=== PATIENT | female | born 1945 | race Caucasian/White ===

== ENCOUNTER 2017-11-14 17:26 | Emergency (ER) | payer MEDICARE, OTHER ==
[2017-11-14 18:05] LABS: BASOPHILS % (AUTO) 0.5 % (0.0-5.0); EOSINOPHILS % (AUTO) 0.8 % (0.0-8.0); HEMATOCRIT 36.1 % (36-48); LYMPHOCYTES % (AUTO) 19.7 % (21.0-51.0); MEAN CORPUSCULAR HEMOGLOBIN 31.2 pg (27.0-33.0); MEAN CORPUSCULAR HGB CONC 35.5 g/dL (32.0-36.0); MONOCYTES % (AUTO) 7.9 % (3.0-13.0); NEUTROPHILS % (AUTO) 71.1 % (40.0-77.0); PLATELET COUNT (AUTO) 304 K/uL (130-400); RED CELL DISTRIBUTION WIDTH 12.2 % (11.0-15.5)
[2017-11-14] MEDS ORDERED: ORPHENADRINE CITRATE 30 MG/ML ML ONE (18:05)
[2017-11-14 18:16] LABS: CREATININE 0.8 mg/dL (0.5-1.5); POTASSIUM 4.5 mmol/L (3.5-5.1)
[2017-11-14 18:20] LABS: INR 0.97 (0.85-1.15); PARTIAL THROMBOPLASTIN TIME 27.5 SEC (26.3-35.5); PROTHROMBIN TIME 10.2 SEC (9.6-11.6)
[2017-11-14 18:29] LABS: ALBUMIN 3.6 g/dL (3.5-5.0); BILIRUBIN,TOTAL 0.4 mg/dL (0.2-1.0); CREATINE KINASE MB 0.6 ng/mL (0.5-3.6); TOTAL PROTEIN, SERUM 7.5 g/dL (6.0-8.3)
[2017-11-14] MEDS ORDERED: KETOROLAC TROMETHAMINE 15MG/ML ONE (19:19)
== END 2017-11-14 19:33 | disposition home or self-care (01) ==
LOC: EDH 17:26
DX: M62.838 Other muscle spasm (principal); M54.2 Cervicalgia; R21 Rash and other nonspecific skin eruption; K21.9 Gastro-esophageal reflux disease without esophagitis; I10 Essential (primary) hypertension; Z88.6 Allergy status to analgesic agent
CPT/HCPCS: 36415; 80053; 82550; 82553; 84484; 85025; 85610; 85730; 93005; 96374; 96375; 99285; J1885; J2360

== ENCOUNTER 2017-11-17 10:59 | Emergency (ER) | payer MEDICARE ==
[2017-11-17] MEDS ORDERED: LIDOCAINE HCL 2% VISCOUS 15 ML UDCUP ONE (11:56)
[2017-11-17] MEDS ORDERED: MAG HYDROX/AL HYDROX/SIMETH ES 30 ML SUSP UDCUP ONE (11:56)
[2017-11-17] MEDS ORDERED: ONDANSETRON ODT 4 MG TAB ONE (11:56)
[2017-11-17] MEDS ORDERED: TRAMADOL HCL 50 MG TABLET ONE (13:03)
[2017-11-17 14:45] LABS: BASOPHILS % (AUTO) 0.7 % (0.0-5.0); CREATININE 0.9 mg/dL (0.5-1.5); EOSINOPHILS % (AUTO) 0.8 % (0.0-8.0); LYMPHOCYTES % (AUTO) 20.5 % (21.0-51.0); MEAN CORPUSCULAR HEMOGLOBIN 31.6 pg (27.0-33.0); MEAN CORPUSCULAR HGB CONC 35.6 g/dL (32.0-36.0); MEAN CORPUSCULAR VOLUME 88.7 fL (79-99); MONOCYTES % (AUTO) 7.8 % (3.0-13.0); NEUTROPHILS % (AUTO) 70.2 % (40.0-77.0); PLATELET COUNT (AUTO) 354 K/uL (130-400); POTASSIUM 3.9 mmol/L (3.5-5.1); RED BLOOD CELL COUNT(AUTO) 4.06 MIL/uL (4.00-5.50); RED CELL DISTRIBUTION WIDTH 12.2 % (11.0-15.5); WHITE BLOOD COUNT (AUTO) 10.2 K/uL (4.8-10.8)
[2017-11-17 15:00] LABS: ALBUMIN 3.7 g/dL (3.5-5.0); BILIRUBIN,TOTAL 0.4 mg/dL (0.2-1.0); CREATINE KINASE MB 0.9 ng/mL (0.5-3.6); TOTAL PROTEIN, SERUM 8.3 g/dL (6.0-8.3)
== END 2017-11-17 16:53 | disposition home or self-care (01) ==
LOC: EDH 10:59
DX: K29.70 Gastritis, unspecified, without bleeding (principal)
CPT/HCPCS: 36415; 71046; 74176; 76705; 80053; 82150; 82550; 82553; 83690; 84484; 85025; 93005

== ENCOUNTER 2019-01-29 10:56 | Observation (INO) | payer MEDICARE ==
[~2019-01-29] VITALS: Ht 154.9 cm; Wt 57.6 kg
[2019-01-29 11:24] LABS: BASOPHILS % (AUTO) 0.8 % (0.0-5.0); EOSINOPHILS % (AUTO) 2.3 % (0.0-8.0); HEMATOCRIT 38.6 % (36-48); LYMPHOCYTES % (AUTO) 34.2 % (21.0-51.0); MEAN CORPUSCULAR HEMOGLOBIN 31.6 pg (27.0-33.0); MEAN CORPUSCULAR HGB CONC 34.8 g/dL (32.0-36.0); MEAN CORPUSCULAR VOLUME 90.9 fL (79-99); MONOCYTES % (AUTO) 8.5 % (3.0-13.0); NEUTROPHILS % (AUTO) 54.2 % (40.0-77.0); NUCLEATED RED BLOOD CELLS 0.1 % (0.0-0.19); PLATELET COUNT (AUTO) 328 K/uL (130-400); RED BLOOD CELL COUNT(AUTO) 4.25 MIL/uL (4.00-5.50); RED CELL DISTRIBUTION WIDTH 12.2 % (11.0-15.5); WHITE BLOOD COUNT (AUTO) 5.9 K/uL (4.8-10.8)
[2019-01-29 11:32] LABS: POTASSIUM 4.6 mmol/L (3.5-5.1)
[2019-01-29 11:37] LABS: BILIRUBIN,TOTAL 0.3 mg/dL (0.2-1.0); TOTAL PROTEIN, SERUM 7.7 g/dL (6.0-8.3)
[2019-01-29] MEDS ORDERED: IOHEXOL-350 75 ML VIAL IV ONE (11:45)
[2019-01-29 11:57] LABS: APPEARANCE,URINE Clear (CLEAR); BILIRUBIN,URINE Negative (NEGATIVE); COLOR,URINE Yellow (YELLOW); GLUCOSE, URINE (UA) Negative (NEGATIVE); KETONES,URINE Negative (NEGATIVE); LEUKOCYTE ESTERASE ,URINE Trace (NEGATIVE); NITRATE,URINE Negative (NEGATIVE); OCCULT BLOOD,URINE Negative (NEGATIVE); PROTEIN,URINE Negative (NEGATIVE); UROBILINOGEN,URINE 0.2 mg/dL (0.2-1.0)
[2019-01-29 12:11] LABS: BACTERIA,URINE Rare /HPF (None Seen); RBC,URINE 0-1 /HPF (0-1); SQUAMOUS EPITHELIAL CELL,UR Rare /HPF (0-2); WBC,URINE 0-1 /HPF (0-1)
[2019-01-29] MEDS ORDERED: METRONIDAZOLE 500MG/100ML BAG 100 ML ONE (13:55)
[2019-01-29] MEDS ORDERED: LIDOCAINE HCL 2% VISCOUS 15 ML UDCUP ONE (13:56)
[2019-01-29] MEDS ORDERED: CEFEPIME HCL 1 GM VIAL ONE (15:15)
[2019-01-29 17:15] VITALS: BP 145/64
[2019-01-29] MEDS ORDERED: HYDROMORPHONE HCL 0.5 MG/0.5 ML ML IVP PRN (18:00)
[2019-01-29] MEDS ORDERED: ONDANSETRON HCL 4 MG/2 ML VIAL IVP PRN (18:00)
--- NOTE | 2019-01-29 19:20 | NUR ---
MD BONNER. MD BRAVO IN PT ROOM AT THIS TIME. UPDATED PT AND PT SPOUSE ON POC. PT AND SPOUSE WERE ABLE TO ASK QUESTIONS AND VERBALIZE UNDERSTANDING. NEW ORDERS RECEIVED, REFER TO EMR. Addendum: 01/30/19 at 0154 by JOSLYN AU RN Amended: Links added.
[2019-01-29 20:00] VITALS: BP 138/66
[2019-01-29] MEDS ORDERED: MAGNESIUM CITRATE 296 ML SOLUTION PO ONE ×2 (20:00→22:00)
[2019-01-29] MEDS: DEXTROSE 5 %-0.45 % NACL 1,000 ML IV SCH (20:15)
[2019-01-29] MEDS ORDERED: LOSA50TA64 PO (20:19)
[2019-01-29] MEDS ORDERED: METH20TA45 PO (20:19)
[2019-01-29] MEDS ORDERED: OMEP40CA37 PO (20:19)
[2019-01-29] MEDS ORDERED: LEVO75TA10 PO (20:19)
[2019-01-29] MEDS ORDERED: ACET-66 PO (20:20)
[2019-01-29] MEDS ORDERED: CLON0.5T12 PO (20:20)
[2019-01-29] MEDS ORDERED: BUPR100T13 PO (20:20)
[2019-01-29] MEDS ORDERED: ACETAMINOPHEN EXTRA STRENGTH 500 MG TABLET ONE (20:26)
[2019-01-29] MEDS ORDERED: ACETAMINOPHEN EXTRA STRENGTH 500 MG TABLET PO PRN (20:30)
[2019-01-29] MEDS ORDERED: CEFEPIME HCL 1 GM VIAL IVP SCH (22:00)
[2019-01-29] MEDS ORDERED: METRONIDAZOLE 500MG/100ML BAG 100 ML IVPB SCH (22:00)
[2019-01-29 23:19] VITALS: BP 118/54
--- NOTE | 2019-01-29 23:30 | NUR ---
REFUSING MED. PT REFUSING SECOND DOSE OF MAG CITRATE AT THIS TIME. C/O NAUSEA/VOMITING POST FIRST MAG CITRATE ADMINISTRATION PER MD ORDER. PT IS REFUSING PRN NAUSEA MEDICATION, ZOFRAN AT THIS TIME. PT ENCOURAGED TO TAKE PRN MEDICATION, BUT PT CONTINUES TO STATE "I WILL FEEL BETTER EVENTUALLY, I CAN'T TAKE A LOT OF MEDICATIONS THEY MESS UP MY STOMACH". WILL CONTINUE TO MONITOR.
--- NOTE | 2019-01-30 02:00 | NUR ---
ENEMA ADMINISTRATION. PER MD ORDER ENEMA ADMINISTERED. PT TOLERATED WELL, WAS ABLE TO HAVE BOWEL MOVEMENT AFTER ADMINISTRATION.
[2019-01-30 03:20] VITALS: BP 136/67
[2019-01-30 04:02] LABS: HEMATOCRIT 39.7 % (36-48); MEAN CORPUSCULAR HEMOGLOBIN 30.8 pg (27.0-33.0); MEAN CORPUSCULAR HGB CONC 34.3 g/dL (32.0-36.0); MEAN CORPUSCULAR VOLUME 89.7 fL (79-99); PLATELET COUNT (AUTO) 395 K/uL (130-400); RED BLOOD CELL COUNT(AUTO) 4.43 MIL/uL (4.00-5.50); RED CELL DISTRIBUTION WIDTH 12.1 % (11.0-15.5); WHITE BLOOD COUNT (AUTO) 11.9 K/uL (4.8-10.8)
[2019-01-30 04:21] LABS: MAGNESIUM 2.6 mg/dL (1.80-2.40); PHOSPHORUS 3.9 mg/dL (2.5-4.9); POTASSIUM 4.3 mmol/L (3.5-5.1)
[2019-01-30] MEDS: DEXTROSE 5 %-0.45 % NACL 1,000 ML IV SCH ×2 (06:40→15:07)
[2019-01-30 07:44] VITALS: BP 152/74
[2019-01-30 11:12] VITALS: BP 159/71
[2019-01-30] MEDS ORDERED: METOCLOPRAMIDE 10 MG/2 ML VIAL IVP PRN (11:30)
--- NOTE | 2019-01-30 13:20 | NUR ---
Report called to [facility] Nurse Gautam Campbell RN. Addendum: 01/30/19 at 1827 by ZAID MCCLURE RN RN please disregard above, written on wrong pt.
--- NOTE | 2019-01-30 14:00 | NUR ---
Soap suds enema per MD order. Pt escorted to rest room after with good results.
[2019-01-30 16:09] VITALS: BP 144/54
[2019-01-30] MEDS ORDERED: ACETAMINOPHEN EXTRA STRENGTH 500 MG TABLET PO PRN (16:30)
--- NOTE | 2019-01-30 17:45 | NUR ---
Discharge instructions completed in the room with pt at 1630. Emphasis on dx, sx, s/s to monitor for, and when to seek emergency care vs dial 911. Post op teaching regarding Dr. Gabriel' orders for NWB status on RLE, up with walker as instructed and as tolerated, keep splint clean, dry, intact, keep elevated when seated or in bed. PT is to call on next business day to schedule an appointment with Dr. Gabriel' office, to be seen on 02/08/19. All questions addressed. As previously noted, pt's rx for norco and asa were already taken to pharmacy by Dr. Gabriel and will be delivered on Friday; pt and MD discussed this and agreed it is the best course of action at present as he in unable to pick it up on his own. PIV removed, tip intact. Dressed with sterile 2x2 and band aid after hemostasis. Pt given hospital walker on loan until his personal one is delivered by [employer]. Pt wheeled to front lobby by [facility] staff at present for discharge home via taxi as arranged by pt. Pt in stable condition at time of discharge. Addendum: 01/30/19 at 1826 by ZAID MCCLURE RN RN please disregard above, written on incorrect pt
--- NOTE | 2019-01-30 18:03 | NUR ---
cm note pt resides at home with spouse, independent with ambulation and adls. no dme. dc plan is back to same home setting at al. no dc needs. Addendum: 01/30/19 at 1804 by FENG WILLIS CM Amended: Links added.
[2019-01-30 19:21] VITALS: BP 117/69
--- NOTE | 2019-01-30 22:30 | NUR ---
ENEMA ADMINISTRATION PER MD ORDER ENEMA ADMINISTERED. PT TOLERATED WELL, WAS ABLE TO HAVE BOWEL MOVEMENT AFTER ADMINISTRATION.
[2019-01-30 23:24] VITALS: BP 145/57
[2019-01-31 03:20] VITALS: BP 125/46
[2019-01-31 04:55] LABS: BASOPHILS % (AUTO) 0.4 % (0.0-5.0); EOSINOPHILS % (AUTO) 1.4 % (0.0-8.0); HEMATOCRIT 33.9 % (36-48); LYMPHOCYTES % (AUTO) 32.3 % (21.0-51.0); MEAN CORPUSCULAR HEMOGLOBIN 32.2 pg (27.0-33.0); MEAN CORPUSCULAR HGB CONC 35.4 g/dL (32.0-36.0); MEAN CORPUSCULAR VOLUME 91.1 fL (79-99); MONOCYTES % (AUTO) 7.6 % (3.0-13.0); NEUTROPHILS % (AUTO) 58.3 % (40.0-77.0); PLATELET COUNT (AUTO) 291 K/uL (130-400); RED BLOOD CELL COUNT(AUTO) 3.72 MIL/uL (4.00-5.50); RED CELL DISTRIBUTION WIDTH 11.9 % (11.0-15.5)
[2019-01-31 08:04] VITALS: BP 121/44
[2019-01-31 11:15] VITALS: BP 125/45
[2019-01-31] MEDS ORDERED: LACT10SO9 PO (13:15)
[2019-01-31] MEDS ORDERED: DOCU-116 PO (13:15)
[2019-01-31] MEDS ORDERED: PSYL1PAC11 PO (13:15)
--- NOTE | 2019-01-31 15:11 | NUR ---
Discharge instructions completed in the room with pt and at the side. Emphasis on dx, s/s to monitor for, when to seek emergency care vs dial 911. Pt already has a follow up appt with PCP tomorrow, encouraged her to keep it. As per MD orders, pt is to follow a full liquid diet x 1 week, then advance as tolerated. Written rx given to pt for lactulose, metamucil, colace. Discussed purpose, route, frequency, and duration of treatment, as well as side effects and adverse effects. All questions addressed. PIV removed, tip intact. Dressed with sterile 2x2 and band aid after hemostasis. Pt wheeled to front lobby by [facility] staff for transport home via private car. Pt in stable condition at time of discharge.
== END 2019-01-31 15:11 | disposition home or self-care (01) ==
LOC: EDH 10:56 → EDHIP 13:04 → 4BH 17:00
PROVIDERS: ADMIT Internal Medicine Critical Care Medicine; ATTEND Internal Medicine Critical Care Medicine
DX: K59.00 Constipation, unspecified (principal); E03.9 Hypothyroidism, unspecified; I10 Essential (primary) hypertension; K29.70 Gastritis, unspecified, without bleeding; F41.9 Anxiety disorder, unspecified; Z80.52 Family history of malignant neoplasm of bladder; Z90.49 Acquired absence of other specified parts of digestive tract; Z82.49 Family history of ischemic heart disease and other diseases of the circulatory system; Z79.899 Other long term (current) drug therapy
CPT/HCPCS: 36415 ×3; 74018 ×3; 74177; 80048 ×2; 80053; 81001; 83605; 83690; 83735; 84100; 85025 ×2; 85027; 96374; 99284; G0378 ×50; J0692; J2405; J3490; J7042 ×2; Q9967